=== PATIENT | female | born 1950 | race Caucasian/White ===

== ENCOUNTER → 2021-04-17 | Outpatient (CLI) | payer OTHER ==
[~2021-04-17] MED LIST: ASA81BEC PO; CALCIUM500 MG PO; COQ1050 MG PO; LEVO-T50 MCG PO; NORVASC5 MG PO; ROSUVASTATIN CA10 MG PO; WOMEN'S MULTI200 MCG PO
== END ==
LOC: LAB 09:45
PROVIDERS: ATTEND Student in an Organized Health Care Education/Training Program
DX: Z01.812 Encounter for preprocedural laboratory examination (principal); Z20.822 Contact with and (suspected) exposure to COVID-19

== ENCOUNTER → 2021-04-19 | Outpatient (CLI) | payer OTHER ==
[~2021-04-19] VITALS: Ht 157.5 cm; Wt 72.6 kg
--- NOTE | 2021-04-21 10:36 | P ---
[facility] [place] [address] PROCEDURE REPORT Name: JJ CHRISTY Room #: REG [facility]#: [id number] Admission: 04/19/21 Attend Phys: Michael Meyer Discharge: Date of : 48 Report #: [id number] THIS REPORT FOR: cc: Clara Pan MD,Michael Adkins MD, MD ~ cc: Clara Pan MD DATE OF SERVICE: 04/19/2021 PROCEDURE PERFORMED: Colonoscopy with polypectomies. HISTORY OF PRESENT ILLNESS: The patient is a 70-year-old female, last colonoscopy approximately 10 years ago, recent Cologuard test was positive. She denies any obvious blood in her stools. No GI symptoms at this time. No family history of colon cancer. DESCRIPTION OF PROCEDURE: The risks and benefits of the procedure were explained to the patient, those risks including but not limited to bleeding, perforation and the risk of sedation. She understood these risks and gave informed consent. Sedation was given using propofol per anesthesia. Next, a digital rectal exam was initially performed, which was normal. Next, using a standard Olympus colonoscope, the scope was placed in the patient's anus and advanced under direct vision to the cecum. The overall prep was good. In the cecum, there were 2 polyps, the smaller was 3 mm in size and removed by cold forceps, the larger was 7 mm and removed by snare cautery. The ileocecal valve was normal. In the ascending colon, a 3 mm sessile polyp was noted, also removed with cold forceps. The transverse colon and descending colon were normal. Multiple diverticula were noted in the sigmoid colon. No evidence of inflammation, otherwise normal. The rectal mucosa was normal. On retroflexion, no abnormalities were noted. The scope was then withdrawn and the procedure terminated. The patient tolerated the procedure well. IMPRESSION: 1. Three colonic polyps. 2. Sigmoid diverticulosis. 3. Otherwise, normal colonoscopy. RECOMMENDATIONS: 1. Await biopsy results. 2. Repeat colonoscopy in [address] [address] PROCEDURE REPORT Name: JJ CHRISTY Dangelo Room #: REG NELLIE Martinez#: [id number] Admission: 04/19/21 Attend Phys: Michael Meyer Discharge: Date of : 48 Report #: [id number] Thank you for allowing me to participate in her care. <ELECTRONICALLY SIGNED> By: Michael Whelan MD 04/21/21 1036 [id number] Michael Whelan MD /nt
--- NOTE | 2021-04-21 18:06 | PATH ---
[facility] [address] [address] PATHOLOGY RPT PROCEDURE Name: SULEMA PUGA Room #: REG JANIA Leti.#: [id number] Admission: 04/19/21 Date of : 48 Discharge: Report #: [id number] Path Case #: [id number] [facility] Accession Number: [id number] . 01 Material submitted: . PART A: colon - ASCENDING COLON POLYPS. Modifiers: ascending PART B: cecum - CECAL POLYPS X2 . 01 Clinical history: . POSITIVE COLORGUARD TEST COLON POLYPS, DIVERTICULOSIS . 01 Diagnosis: A. Colonic mucosa "ascending colon polyps": - Tubular adenoma. - There is no evidence of high grade dysplasia or malignancy. . B. Colonic mucosa "cecal polyps x2": - Fragments of tubular adenoma. - There is no evidence of high grade dysplasia or malignancy. . (SHA:micki; 04/21/2021) QL 04/21/2021 1017 Local . 01 Electronically signed: . Man Zafar MD, Pathologist NPI- [id number] . 01 Gross description: . A. The specimen is received in formalin, labeled "Sulema Puga, ascending colon polyp" and consists of a van irregular tissue measuring 0.3 x 0.3 x 0.2 cm which is submitted in toto in A1. . B. The specimen is received in formalin, labeled "Sulema Puga, cecal polyps", additionally the requisition designates the specimen as "cecal polyps x2". The specimen consists of multiple van irregular tissues aggregating 0.9 x 0.6 x 0.3 cm which are filtered and submitted in toto in B1.(KARUK; 04/20/2021) DKA/SAVANNA 04/20/2021 1138 Local . 01 Pathologist provided ICD-10: D12.2, D12.0 . 01 CPT . 938570, 499745 Specimen Comment: A courtesy copy of this report has been sent to [phone], [phone] [address] PATHOLOGY RPT PROCEDURE Name: SULEMA PUGA Room #: REG Lionel Martinez#: [id number] Admission: 04/19/21 Date of : 48 Discharge: Report #: [id number] Path Case #: [id number] Specimen Comment: [id number] Specimen Comment: Report sent to / DR TEJEDA Performed at: 01 [facility] [address], [place], [place] [id number] MD Man Zafar MD Phone: [phone]
== END | disposition home or self-care (01) ==
LOC: GI
PROVIDERS: ATTEND Specialist
DX: R19.5 Other fecal abnormalities (principal); D12.0 Benign neoplasm of cecum; D12.2 Benign neoplasm of ascending colon; K57.30 Diverticulosis of large intestine without perforation or abscess without bleeding; I10 Essential (primary) hypertension; E78.00 Pure hypercholesterolemia, unspecified; Z98.890 Other specified postprocedural states; Z79.899 Other long term (current) drug therapy; Z90.710 Acquired absence of both cervix and uterus; Z90.49 Acquired absence of other specified parts of digestive tract; Z87.19 Personal history of other diseases of the digestive system; Z88.0 Allergy status to penicillin; Z88.8 Allergy status to other drugs, medicaments and biological substances
CPT/HCPCS: 62110; 62900